=== PATIENT | male | born 1950 | race Caucasian/White ===

== ENCOUNTER 2020-08-10 11:29 | Inpatient (IN) | payer MEDICARE, BC ==
[~2020-08-10] VITALS: Ht 188 cm; Wt 99.8 kg
[~2020-08-10 11:29] MED LIST: CATAPRES 0.1MG0.1 MG PO; ECOTRIN81 MG PO; FENOFIBRATE160 MG PO; HYDRALAZINE HCL50 MG PO; IMDUR ER TAB 6060 MG PO; LOPRESSOR50 MG PO; NITROSTAT0.4 MG SL; VISTARIL25 MG PO
[2020-08-10 12:29] LABS: HEMOGLOBIN 11.6 gm/dl (14.0-17.5); RED BLOOD COUNT 3.46 M/UL (4.20-5.50); WHITE BLOOD COUNT 6.8 K/UL (4.5-11.0)
[2020-08-10] MEDS ORDERED: GABAPENTIN400 MG PO (16:23)
[2020-08-10] MEDS ORDERED: RANEXA500 MG PO (16:24)
[2020-08-10] MEDS ORDERED: HYDROCODONE-AC1 EAC1 PO (16:24)
[2020-08-10] MEDS ORDERED: ENTRESTO 49 MG1 EACH PO (16:24)
[2020-08-10] MEDS ORDERED: FENOFIBRATE200 MG PO (16:24)
[2020-08-10] MEDS ORDERED: LEVOTHYROXINE50 MC1 PO (16:25)
[2020-08-10] MEDS ORDERED: COREG 12.5MG12.5 MG PO (16:25)
[2020-08-10] MEDS ORDERED: PHENERGAN 25 MG25 M1 PO (16:26)
--- NOTE | 2020-08-11 03:33 | NUR ---
2299- WENT IN TO PLACE VENCES CATH ON PATIENT. EXPLAINED RISKS/BENEFITS. PT ADAMANTLY REFUSED. 299- PT ONLY VOIDED 200 ML. EXPLAINED NEED FOR CATH AGAIN. PT CONTINUING TO REFUSE. AWARE.
[2020-08-11 03:45] LABS: HEMOGLOBIN 10.3 gm/dl (14.0-17.5); RED BLOOD COUNT 3.12 M/UL (4.20-5.50)
[2020-08-16 03:23] LABS: HEMOGLOBIN 10.3 gm/dl (14.0-17.5); RED BLOOD COUNT 3.08 M/UL (4.20-5.50); WHITE BLOOD COUNT 5.5 K/UL (4.5-11.0)
[2020-08-17 18:41] LABS: RED BLOOD COUNT 3.57 M/UL (4.20-5.50); WHITE BLOOD COUNT 9.4 K/UL (4.5-11.0)
--- NOTE | 2020-08-17 18:51 | NUR ---
REPORT CALLED TO JARVIS BERGERON AT [facility]. [facility] [phone]. DR CHRIS HOSPITALIST TO CARE FOR PT.
== END 2020-08-17 22:58 | disposition short-term general hospital (02) | DRG 291 ==
LOC: ER1 11:29 → CDU 14:41 → MED SURG 4 14:41
PROVIDERS: Family Medicine; Internal Medicine; Internal Medicine Nephrology; Physician Assistant Medical; ADMIT Internal Medicine
PROC: B24BZZZ Ultrasonography of Heart with Aorta (ICD-10-PCS; principal; 2020-08-16)
DX: I13.0 Hypertensive heart and chronic kidney disease with heart failure and stage 1 through stage 4 chronic kidney disease, or unspecified chronic kidney disease (principal); I50.23 Acute on chronic systolic (congestive) heart failure; J96.01 Acute respiratory failure with hypoxia; N18.4 Chronic kidney disease, stage 4 (severe); I74.10 Embolism and thrombosis of unspecified parts of aorta; J44.1 Chronic obstructive pulmonary disease with (acute) exacerbation; I48.91 Unspecified atrial fibrillation; J98.01 Acute bronchospasm; D64.9 Anemia, unspecified; D69.6 Thrombocytopenia, unspecified; R73.9 Hyperglycemia, unspecified; G47.00 Insomnia, unspecified; D75.89 Other specified diseases of blood and blood-forming organs; I73.9 Peripheral vascular disease, unspecified; E78.5 Hyperlipidemia, unspecified; E03.9 Hypothyroidism, unspecified; K80.20 Calculus of gallbladder without cholecystitis without obstruction; F17.210 Nicotine dependence, cigarettes, uncomplicated; I71.2 Thoracic aortic aneurysm, without rupture; E87.5 Hyperkalemia; Q61.01 Congenital single renal cyst; Z95.1 Presence of aortocoronary bypass graft; Z82.49 Family history of ischemic heart disease and other diseases of the circulatory system
CPT/HCPCS: ECHO; 36415; 36600; 71045; 71250; 80048; 80053; 81001; 82550; 82553; 82570; 82803; 82962; 83036; 83605; 83735; 83880; 84133; 84156; 84300; 84484; 85025; 85027; 85610; 87040; 89050; 93005; 93306; 94640; 94664; 94760; 96365; 96366; 96372; 96375; 96376; 99285; J0360; J1205; J1644; J1650; J1940; J2405; J2920; J2930; P9047; U0002